=== PATIENT | female | born 1990 | race Caucasian/White ===

== ENCOUNTER 2020-12-04 23:03 | Inpatient (IN) | payer SELFPAY ==
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
[2020-12-04 23:37] VITALS: BMI 23.3
[2020-12-04 23:43] VITALS: BP 101/66; PULSE 130; RESP 18; TEMP 36.9; O2SAT 97
[2020-12-04] MEDS: ondansetron 4 MG Tablet PO (23:50)
--- NOTE | 2020-12-04 23:51 | PC.NURSE ---
Addendum entered by Melissa White RN 12/05/20 01:15: Monitored Pt, she is in her room sleeping. Nausea subsided. Original Note: PRN Zofran 4mg PO given to patient for Nausea.
[2020-12-05 06:00] VITALS: BP 95/55; PULSE 93; RESP 16; TEMP 36.9; O2SAT 96
--- NOTE | 2020-12-05 08:28 | PC.OT ---
OT EVALUATION ATTEMPTED; PATIENT DOES NOT AWAKEN TO NAME ON MULTIPLE ATTEMPTS. WILL ATTEMPT OT EVALUATION AGAIN AT A LATER TIME.
[2020-12-05 14:00] VITALS: BP 92/58; PULSE 92; RESP 16; TEMP 37; O2SAT 97
[2020-12-05] MEDS: nicotine 2 mg Gum BUCCAL ×2 (16:59→19:44)
--- NOTE | 2020-12-05 17:32 | P.HP_ITS ---
Providers/Chief Complaint Admitting Physician: Max Chino MD Chief Complaint: Suicide Attempt/Room 155-1 [facility] NPU History of Present Illness Charo Farley is a 30 year old female who presented to [facility] endorsing suicidal ideation, depression and anxiety. She endorsed this started about 4 weeks ago endorsing that it was constant in nature but fluctuating in intensity she reports moderate symptoms but has a self-inflicted cut to her wrist that needed 14 sutures. She was transferred to [facility] and admitted to the neuropsychiatric unit for definitive treatment of those issues. She presents today flatly refusing to answer questions or engage in an interview with this global technical writer. Multiple attempts were made without her changing her position. The following information was obtained through the outside documentation. She has no known medication allergies but is allergic to avocados. She endorsed only things prescribed ibuprofen as needed. She endorsed a with delivery in November 2007 and 1 on 12/06/2013. No significant surgical history was endorsed she reports being a half a pack a day cigarette smoker and denies substance abuse laboratory studies were mostly unremarkable though her drug screen was positive for amphetamines. Meds NPU Home Medications Medication Instructions Recorded Confirmed Last Taken Type ibuprofen [Motrin] 600 mg PO Q8H PRN 12/05/20 12/05/20 12/04/20 12:00 History Allergies Allergy/AdvReac Type Severity Reaction Status Date / Time avocado Allergy ALGY-Hives Verified 12/04/20 23:43 [facility] NPU PFSH: Medical History (Updated 12/06/20 @ 08:14 by Max Chino MD) Anxiety Depression History of ovarian cyst Methamphetamine abuse Suicide attempt by cutting of wrist Social History (Updated 12/05/20 @ 01:13 by Melissa White RN) Smoking and tobacco status: current every day smoker cigarettes Packs smoked per day: 0.5 Years cigarettes smoked: 5 Number of cigarettes per day: 1-5 and e- cigarettes E-Cigarette Details: e-cigarette Substance/Drug Use: current Substance/Drug use type: Amphetamines and Methamphetamine Desire information about substance/drug rehabilitation?: No Adopted: No Caregiver/support person: No Lives independently: Yes Household members: family service: No Current occupational status: unemployed Sexually active: Yes Current gender identity: Female Special dee needs: No Agree to transfusion: Yes Financial difficulty paying for basics: Very Hard Mental Status Exam MSE Comments: This is a well-nourished well-developed white female in hospital scrubs with limited grooming and eye contact. No abnormal movements except for psychomotor agitation. Uncooperative with exam and mild to moderate distress. Speech was limited but increased rate and volume. Mood not described affect irritable. Thought process appeared linear. Thought content: Patient did not answer questions about lethality etc. but did not demonstrate aggression towards herself or others, had no clear delusions reported or noted, there was no auditory or visual hallucinations reported and it was unclear in our exchange whether she was attending to internal stimuli. Attention and concentration were limited and memory was on reliable but none were formally tested. She is alert and oriented to person and place. Insight and judgment are impaired impulse control is impaired. Vitals/I&O/Wt Last Vital Signs Temp 97.9 F 12/05/20 20:22 Pulse 111 H 12/05/20 20:22 Resp 18 12/05/20 20:22 BP 107/75 12/05/20 20:22 Pulse Ox 100 12/05/20 20:22 Weight last 48 hrs Weight 63.503 kg A&P Assessment and plan (1) Anxiety: Status: Acute (2) Depression: Status: Acute (3) History of ovarian cyst: Status: Acute (4) Methamphetamine abuse: Status: Acute (5) Suicide attempt by cutting of wrist: Status: Acute Additional A&P Information This is a 38-year-old white female who is an unreliable historian reporting depression, anxiety and denying any issues of addiction but having a positive screen for methamphetamines and having significant irritability who presents unwilling to engage in active evaluation status post suicide attempt/suicide gesture. 1. Continue current medication. 2. Encourage individual, group and milieu therapy. 3. Continue every 15 minute checks for safety. 4. Encourage sober living treatment after discharge at the highest level of care to which she is willing to commit. 5. We will continue to attempt to engage patient to get more information as to the circumstances of his presentation. Involuntary Hold Information 96 Hour Hold: 96 Hour Involuntary Admission: No Attestations NPU Medical Necessity Statement*: Inpatient hospitalization is medically necessary and the clinically appropriate intervention at this time. Will monitor medications and make changes as indicated. She will be in the hospital over 2 midnights. Based on presentation thus far and suicide attempt we will consider 96-hour hold if necessary. Likely length of stay 3 to 5 days. Coding Level of Care Code Acute Policy Writer Sales for Chg Fwd Diagnoses Anxiety F41.9 Depression F32.9 History of ovarian cyst Z87.42 Methamphetamine abuse F15.10 Suicide attempt by cutting of wrist X78.9XXA
[2020-12-05] MEDS: ibuprofen 600 mg Tablet PO (19:30)
[2020-12-05 20:22] VITALS: BP 107/75; PULSE 111; RESP 18; TEMP 36.6; O2SAT 100
[2020-12-06 06:00] VITALS: BP 107/75; PULSE 111; RESP 18; TEMP 36.6; O2SAT 100
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
[2020-12-06] MEDS: nicotine 2 mg Gum BUCCAL ×3 (11:06→17:50)
[2020-12-06] MEDS: ibuprofen 600 mg Tablet PO ×2 (11:45→20:17)
[2020-12-06] MEDS: buPROPion XL (24 HR) 150 mg Tablet PO (11:46)
[2020-12-06 14:00] VITALS: BP 105/66; PULSE 100; RESP 17; TEMP 36.7; O2SAT 100
[2020-12-06] MEDS: acetaminophen 325 mg Tablet 650 MG PO ×2 (14:25→22:17)
--- NOTE | 2020-12-06 15:21 | PC.RESP ---
SMOKING CESSATION INFORMATION SENT TO PATIENT.
[2020-12-06] MEDS: BuSPIRONE 10 mg Tablet 15 MG PO (17:50)
[2020-12-06 20:57] VITALS: BP 111/74; PULSE 96; RESP 18; TEMP 36.6; O2SAT 100
[2020-12-06] MEDS: hyDROXYzine 25 mg Capsule 50 MG PO (21:33)
[2020-12-06] MEDS: trazodone 50 mg Tablet PO (21:34)
[2020-12-07 06:00] VITALS: BP 111/74; PULSE 96; RESP 18; TEMP 36.6; O2SAT 100
--- NOTE | 2020-12-07 07:36 | PM.NDC ---
Diagnoses at Discharge Discharge Diagnosis (1) Anxiety: Status: Acute (2) Depression: Status: Acute (3) History of ovarian cyst: Status: Acute (4) Methamphetamine abuse: Status: Acute (5) Suicide attempt by cutting of wrist: Status: Acute Reason for Visit Reason for Visit: Suicide Attempt/Room 155-1 Brief History: Charo Farley is a 30 year old female who presented to [facility] endorsing suicidal ideation, depression and anxiety. She endorsed this started about 4 weeks ago endorsing that it was constant in nature but fluctuating in intensity she reports moderate symptoms but has a self-inflicted cut to her wrist that needed 14 sutures. She was transferred to [facility] and admitted to the neuropsychiatric unit for definitive treatment of those issues. She presents today flatly refusing to answer questions or engage in an interview with this assembly instructions writer. Multiple attempts were made without her changing her position. The following information was obtained through the outside documentation. She has no known medication allergies but is allergic to avocados. She endorsed only things prescribed ibuprofen as needed. She endorsed a with delivery in November 2007 and 1 on 12/06/2013. No significant surgical history was endorsed she reports being a half a pack a day cigarette smoker and denies substance abuse laboratory studies were mostly unremarkable though her drug screen was positive for amphetamines. Hospital Course Hospital Course She quickly acclimated to the individual, group and milieu therapies provided. She was very connected to the reality of her addiction and the impact of that and being off of her medication. We restarted her medications and she had a marked improvement. She was working with her family to have additional intensive services and plans in her area. She was able to contract for safety prior to discharge. At the outside hospital, patient had routine laboratory studies which were within normal limits except for few outliers. Additionally there was a general medical evaluation which was also within normal limits and revealed no new acute processes. Discharge Summary: At the time of discharge, she denied psychosis or lethality. Mood and anxiety were well managed. Patient endorsed a plan to avoid all drugs of abuse and follow-up with the aftercare recommendations of the treatment team. Patient was evaluated and deemed to be absent credible lethality, and had achieved the maximum benefit from an inpatient hospitalization, so was discharged. Involuntary Hold Information 96 Hour Hold: 96 Hour Involuntary Admission: No Mental Status Exam MSE Comments: This is a well-nourished well-developed white female in hospital scrubs with adequate grooming and eye contact. No abnormal movements. Uncooperative with exam in no acute distress. Speech was normal rate and volume. Mood described as pretty good, affect congruent. Thought process appeared organized. Thought content: Patient denied suicidal or homicidal ideations, no delusions were reported or noted, there was no auditory or visual hallucinations reported. Attention and concentration were limited and memory was on reliable but none were formally tested. She is alert and oriented to person and place. Insight and judgment are fair, impulse control is limited, but improving. Discharge Data Vitals: Last Vital Signs Temp 97.9 F 12/07/20 06:00 Pulse 96 12/07/20 06:00 Resp 18 12/07/20 06:00 BP 111/74 12/07/20 06:00 Pulse Ox 100 12/07/20 06:00 Discharge Plan Discharge Patient Disposition: Home Condition: Stable Prescriptions: New bupropion HCl 150 mg Tablet Extended Release 24 Hr 150 mg PO DAILY 30 Days Qty: 30 RF: 1 trazodone 50 mg Tablet 50 mg PO BEDTIME PRN (Reason: Sleep) 30 Days Qty: 30 RF: 1 hydroxyzine pamoate 25 mg Capsule 50 mg PO Q6H PRN (Reason: Anxiety) 30 Days Qty: 120 RF: 1 buspirone 10 mg Tablet 15 mg PO BID 30 Days Qty: 90 RF: 1 Continued ibuprofen 600 mg Tablet 600 mg PO Q8H PRN (Reason: Pain (Scale Score 4-6)) RF: 0 Discharge Orders: Discharge Order (Routine); Ordered 12/07/20 Ordered By: Max Chino Referrals: [facility] [Other] Discharge Diet: Regular Discharge Activity: Resume usual activity Patient Instructions: Opioid Safety Discharge Attestations NPU Time Spent in Discharge Care*: less than 30 min Specific Discharge Activities: Specific discharge activities: educating patient, discussing with family caseworker/social workers/dc planners, documenting/other paperwork and evaluating patient/reviewing data Coding Level of Care Code Acute Chg FW DC note Diagnoses Anxiety F41.9 Depression F32.9 History of ovarian cyst Z87.42 Methamphetamine abuse F15.10 Suicide attempt by cutting of wrist X78.9XXA
[2020-12-07 07:49] VITALS: BP 111/74; PULSE 96; RESP 18; TEMP 36.6; O2SAT 100
[2020-12-07] MEDS: acetaminophen 325 mg Tablet 650 MG PO (09:21)
[2020-12-07] MEDS: buPROPion XL (24 HR) 150 mg Tablet PO (09:22)
[2020-12-07] MEDS: BuSPIRONE 10 mg Tablet 15 MG PO (09:22)
[2020-12-07] MEDS: nicotine 2 mg Gum BUCCAL (10:22)
== END 2020-12-07 12:42 | disposition home or self-care (01) | DRG 880 ==
PROVIDERS: Admitting Provider Psychiatry & Neurology Psychiatry; Visit Provider Psychiatry & Neurology Psychiatry
DX: F41.8 Other specified anxiety disorders (principal); R45.851 Suicidal ideations; F17.210 Nicotine dependence, cigarettes, uncomplicated; F15.10 Other stimulant abuse, uncomplicated; Z91.5 Personal history of self-harm
CPT/HCPCS: 97150; 97165; Q0162

== ENCOUNTER 2021-05-09 15:44 | Inpatient (IN) | payer MEDICAID, SELFPAY ==
[2021-05-09 15:48] VITALS: BP 113/64; PULSE 82; RESP 16; TEMP 36.7; O2SAT 100
[2021-05-09 15:51] VITALS: BMI 20.1
[2021-05-09] MEDS: nicotine 2 mg Gum BUCCAL ×2 (17:10→19:12)
[2021-05-09] MEDS: BuSPIRONE 10 mg Tablet 15 MG PO (18:40)
[2021-05-09] MEDS: blistex lip oint 7 gm Tube 1 APPLIC TOPICAL (19:12)
[2021-05-09] MEDS: trazodone 50 mg Tablet PO (20:46)
[2021-05-09 20:52] VITALS: BP 100/64; PULSE 101; RESP 17; TEMP 36.6; O2SAT 100
--- NOTE | 2021-05-09 22:15 | PC.NURSE ---
2045- Requested trazodone for insomnia. 2145- She is resting in bed with eyes closed.
[2021-05-10 06:00] VITALS: BP 102/67; PULSE 88; RESP 18; O2SAT 98
[2021-05-10] MEDS: nicotine 2 mg Gum BUCCAL ×2 (06:18→10:54)
[2021-05-10] MEDS: BuSPIRONE 10 mg Tablet 15 MG PO ×2 (10:19→17:05)
[2021-05-10] MEDS: buPROPion XL (24 HR) 150 mg Tablet PO (10:19)
[2021-05-10] MEDS: nicotine 4 mg lozenge MUCOUS MEM ×5 (11:45→20:36)
[2021-05-10 14:00] VITALS: BP 104/67; PULSE 96; RESP 16; TEMP 36.6; O2SAT 100
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
[2021-05-10 22:00] VITALS: BP 108/65; PULSE 104; RESP 18; TEMP 36.8; O2SAT 100
[2021-05-10] MEDS: hyDROXYzine 25 mg Capsule 50 MG PO (22:02)
[2021-05-10] MEDS: trazodone 100 mg Tablet PO (22:03)
[2021-05-11] MEDS: nicotine 4 mg lozenge MUCOUS MEM ×6 (00:47→20:30)
[2021-05-11] MEDS: acetaminophen 325 mg Tablet 650 MG PO ×2 (02:18→21:57)
[2021-05-11 06:00] VITALS: BP 109/71; PULSE 81; RESP 18; TEMP 36.7; O2SAT 98
[2021-05-11] MEDS: BuSPIRONE 10 mg Tablet 15 MG PO ×2 (08:59→18:04)
[2021-05-11] MEDS: buPROPion XL (24 HR) 150 mg Tablet PO (08:59)
--- NOTE | 2021-05-11 09:20 | PC.NURSE ---
Am assessment patient is resting quietly in bed with eyes closed. She awakens easily to verbal stimuli. She is somewhat irritable upon assessment with being woken up but quickly becomes pleasant. She is cooperative. Denies SI, HI, or hallucinations. Affect is guarded. Hr regular in rhythm. PPP x 2, no edema noted. Lungs clear with breathing even and non labored. Bowel sounds active in all quads. Denies pain with urination. Denies all other pain. Skin is warm and dry. No skin tears, rashes or bruises noted.
--- NOTE | 2021-05-11 11:35 | W.PM.NPUPNS ---
Subjective NPU Subjective: Interval history: Patient presents today reporting that she still really struggled with sleep last night. She continues to be wishful that she could leave today reporting that she wants to see her daughter before going what will likely be a month without seeing her she states that this program. We discussed however our concerns about giving longer periods of time and people who have struggled mildly like she has. She ultimately was excepting of the plan with collaboration with her parents that they pick her up tomorrow morning early and that she had a very limited window for anything other than gathering some things and possibly staying close to her daughter depending on the situation. We continue to stress long-term success and vision and goals over her instinct and desire for spending some time with her daughter which would lead to other free time that could be very problematic. She reports she is eating okay but still struggling with sleep. Mental Status Exam MSE Comments: This is a well-nourished, well-developed, white female, with hospital scrubs on, with adequate grooming and eye contact. No abnormal movements. Cooperative with exam in mild distress. Speech was normal rate and volume. Mood described as anxious about this program and seeing my daughter affect pensive. Thought process, organized. Thought content: patient denied any suicidal or homicidal ideation, there were no delusions reported or noted, patient denied any auditory or visual hallucinations. Attention, concentration, and memory appear intact but none were formally tested. She is alert and oriented times three. Insight and judgment are limited. Impulse control is limited. Vitals/I&O/Wt Last Vital Signs Temp 98.0 F 05/11/21 06:00 Pulse 81 05/11/21 06:00 Resp 18 05/11/21 06:00 BP 109/71 05/11/21 06:00 Pulse Ox 98 05/11/21 06:00 Weight last 48 hrs Weight 64.319 kg Weight 56.699 kg Weight 56.699 kg A&P Assessment and plan (1) History of ovarian cyst: Status: Acute (2) Anxiety: Status: Acute (3) Methamphetamine abuse: Status: Acute (4) Depression: Status: Acute (5) Suicide attempt by cutting of wrist: Status: Acute Plan This is a 30 -year-old, white female, with major depressive disorder, recurrent, post-traumatic stress disorder, and opiate use disorder, severe, who presents trying to regain her sobriety, with resolving suicidality. 1. Continue current medication, except will discontinued BuSpar and work with the program she has been accepted to to determine if there is any anxiety medication she could take. 2. Encourage individual, group, and milieu therapy. 3. Continue q-15 minute checks for safety. 4. Recommend sober living treatment at the highest level of care to which the patient is willing to commit. Involuntary Hold Information 96 Hour Hold: 96 Hour Involuntary Admission: No Attestations NPU Medical Necessity Statement*: Inpatient hospitalization is medically necessary and the clinically appropriate intervention, at this time. We will monitor medications and make changes as indicated. Patient will be in the hospital for over two midnights. Likely length of stay is 1-3 days with plan for discharge in the morning. Coding Level of Care Code Acute Auto Inspection Specialist for Dipti Conner Diagnoses History of ovarian cyst Z87.42 Anxiety F41.9 Methamphetamine abuse F15.10 Depression F32.9 Suicide attempt by cutting of wrist X78.9XXA
[2021-05-11] MEDS: OLANZapine 5 mg ODT PO ×3 (13:55→22:18)
--- NOTE | 2021-05-11 13:58 | PC.NURSE ---
Addendum entered by Irma Smith RN 05/11/21 14:48: Patient reports anxiety is much improved. She states she is very excited to go to rehab and plans to leave early tomorrow morning. Her mom, Rosa, called reporting she will be here to parts picker the patient. Zyprexa effective. Original Note: Prn note Patient came to nurses station c/o feeling very anxious, she reports difficulty with going to rehab. She would like to see her daughter before she goes to rehab. She felt as if she was making excuses for herself to prevent herself from going to rehab. Patient and staff talked and patient was agreeable to go to rehab. She received Zyprexa prn for anxiety/agitation.
[2021-05-11 14:00] VITALS: BP 117/72; PULSE 108; RESP 17; TEMP 36.6; O2SAT 98
--- NOTE | 2021-05-11 18:12 | PC.NURSE ---
Prn note Patient noted to be on the phone multiple times with parents. She became angry after getting off the phone and stated that her parents would not be picking her up as her father thinks she wants to stop in [place], [place] to get high. She states this is not true and she would need an uber to get to rehab. Staff allowed patient to go to her room and checked on her later. She stated to this staff member that she still planned to go to rehab.
[2021-05-11 20:11] VITALS: BP 100/62; PULSE 99; RESP 18; TEMP 37.2; O2SAT 94
[2021-05-11] MEDS: trazodone 100 mg Tablet PO (20:12)
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
[2021-05-11] MEDS: haloperidol 5 mg Tablet PO (23:17)
[2021-05-12] MEDS: ibuprofen 600 mg Tablet PO (01:07)
[2021-05-12] MEDS: acetaminophen 325 mg Tablet 650 MG PO (03:52)
[2021-05-12 05:34] VITALS: BP 100/62; PULSE 99; RESP 18; TEMP 37.2; O2SAT 94
[2021-05-12 05:49] VITALS: BP 97/60; PULSE 82; RESP 18; TEMP 36.7; O2SAT 98
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
[2021-05-12 08:19] VITALS: BP 97/60; PULSE 82; RESP 18; TEMP 36.7; O2SAT 98
[2021-05-12] MEDS: BuSPIRONE 10 mg Tablet 15 MG PO (08:37)
[2021-05-12] MEDS: buPROPion XL (24 HR) 150 mg Tablet PO (08:38)
== END 2021-05-12 10:44 | disposition home or self-care (01) | DRG 881 ==
PROVIDERS: Admitting Provider Psychiatry & Neurology Psychiatry; Visit Provider Psychiatry & Neurology Psychiatry
DX: F32.9 Major depressive disorder, single episode, unspecified (principal); F41.9 Anxiety disorder, unspecified; F15.10 Other stimulant abuse, uncomplicated; Z62.810 Personal history of physical and sexual abuse in childhood; F17.210 Nicotine dependence, cigarettes, uncomplicated; F11.10 Opioid abuse, uncomplicated; F43.10 Post-traumatic stress disorder, unspecified; Z91.52 Personal history of nonsuicidal self-harm
CPT/HCPCS: 97165